=== PATIENT | male | born 1940 | race Caucasian/White ===

== ENCOUNTER 2018-10-23 01:44 | Outpatient (CLI) | payer MEDICARE, SELFPAY ==
[2018-10-23 11:22] LABS: Anion Gap 8.8 mmol/L (3-11); BUN 22 mg/dL (7-18); CO2 27.2 mmol/L (21.0-32.0); CREATININE 1.22 mg/dL (0.70-1.30); Calcium 8.7 mg/dL (8.5-10.1); Chloride 105 mmol/L (98-107); Cholesterol 145 mg/dL (50-200); Glucose 102 mg/dL (70-100); HDL Cholesterol 32 mg/dL (40-60); LDL CHOLESTEROL 83 mg/dL (<100); Potassium 4.4 mmol/L (3.5-5.1); Sodium 141 mmol/L (136-145); Triglyceride 156 mg/dL (30-150)
[2018-10-24 11:09] LABS: PSA, Diagnostic <0.1 ng/ml (0-6.5)
== END 2018-10-23 02:04 ==
PROVIDERS: PCP Family Medicine; Visit Provider Family Medicine
DX: E78.00 Pure hypercholesterolemia, unspecified (principal); I10 Essential (primary) hypertension; C61 Malignant neoplasm of prostate
CPT/HCPCS: 36415; 80048; 80061; 83721; 84153

== ENCOUNTER 2019-10-29 03:16 | Outpatient (CLI) | payer MEDICARE, SELFPAY ==
[2019-10-29 09:58] LABS: Anion Gap 9.3 mmol/L (3-11); BUN 22 mg/dL (7-18); CO2 26.7 mmol/L (21.0-32.0); CREATININE 1.49 mg/dL (0.70-1.30); Calcium 8.5 mg/dL (8.5-10.1); Chloride 106 mmol/L (98-107); Estimated GFR 45.38 (mL/min/1.73m2); Glucose 92 mg/dL (74-106); Potassium 4.5 mmol/L (3.5-5.1); Sodium 142 mmol/L (136-145)
[2019-10-30 09:00] LABS: PSA, Diagnostic <0.1 ng/mL (0.0-6.5)
== END 2019-10-29 03:36 ==
PROVIDERS: PCP Family Medicine; Visit Provider Family Medicine
DX: I10 Essential (primary) hypertension (principal); C61 Malignant neoplasm of prostate
CPT/HCPCS: 36415; 80048; 84153

== ENCOUNTER 2019-11-04 10:00 | Outpatient (REF) | payer MEDICARE, SELFPAY ==
--- NOTE | 2019-11-04 15:52 | SKI_PTH ---
PATIENT: Ky Cantu LOC: [facility] U#:[id number] AGE/SX: 79/M ROOM: RE11/04/[address]: Julien Wells DO : 1940 BED: DIS: 11/04/2019 SPEC #: [id number] RECD: 11/05/19 12:46 STATUS: TUAN REQ #: [id number] JAGDEEP: 11/04/19 15:[address]: Julien Wells DEPT: Surgical Specimen RECD BY: Lu Weiss ENTERED: 11/05/19 12:48 SP TYPE: RADHA ARGUETA DR: Kendrick Garg MD Tissues: 1 - SKIN BIOPSY(SHAVE/PUNCH) Procedures: SKIN LEVEL 4 Comments: [id number]
== END 2019-11-04 10:20 ==
LOC: LBN 10:00
PROVIDERS: PCP Family Medicine; Visit Provider Otolaryngology Otolaryngology/Facial Plastic Surgery
DX: C44.311 Basal cell carcinoma of skin of nose (principal); L90.5 Scar conditions and fibrosis of skin
CPT/HCPCS: 88305

== ENCOUNTER 2020-07-10 01:04 | Outpatient (CLI) | payer MEDICARE, SELFPAY ==
[2020-07-10 13:04] LABS: Anion Gap 8.5 mmol/L (3-11); BUN 22 mg/dL (7-18); CO2 26.5 mmol/L (21.0-32.0); CREATININE 1.28 mg/dL (0.70-1.30); Calcium 8.5 mg/dL (8.5-10.1); Calculated LDL 80 mg/dL (<100); Chloride 103 mmol/L (98-107); Cholesterol 143 mg/dL (<200); Estimated GFR 53.94 (mL/min/1.73m2); Glucose 111 mg/dL (74-106); HDL Cholesterol 40 mg/dL (40-60); Potassium 4.6 mmol/L (3.5-5.1); Sodium 138 mmol/L (136-145); Triglyceride 118 mg/dL (<150)
== END 2020-07-10 01:24 ==
PROVIDERS: PCP Family Medicine; Visit Provider Nurse Practitioner Family
DX: I10 Essential (primary) hypertension (principal)
CPT/HCPCS: 36415; 80048; 80061

== ENCOUNTER 2021-07-20 04:08 | Outpatient (CLI) | payer MEDICARE, SELFPAY ==
[2021-07-20 12:22] LABS: Anion Gap 7.3 mmol/L (3-11); BUN 26 mg/dL (7-18); CO2 27.7 mmol/L (21.0-32.0); CREATININE 1.3 mg/dL (0.70-1.30); Calcium 8.7 mg/dL (8.5-10.1); Calculated LDL 83 mg/dL (<100); Chloride 105 mmol/L (98-107); Cholesterol 149 mg/dL (<200); Estimated GFR 52.85 (mL/min/1.73m2); Glucose 108 mg/dL (74-106); HDL Cholesterol 34 mg/dL (40-60); Potassium 4.1 mmol/L (3.5-5.1); Sodium 140 mmol/L (136-145); Triglyceride 162 mg/dL (<150)
[2021-07-20 16:50] LABS: PSA, Diagnostic <0.1 ng/mL (0.0-6.5)
== END 2021-07-20 04:09 | disposition home or self-care (01) ==
LOC: LBO 04:08
PROVIDERS: PCP Family Medicine; Visit Provider Family Medicine
DX: E78.5 Hyperlipidemia, unspecified (principal); E87.1 Hypo-osmolality and hyponatremia; C61 Malignant neoplasm of prostate
CPT/HCPCS: 36415; 80048; 80061; 84153

== ENCOUNTER 2022-03-31 10:21 | Outpatient (REF) | payer MEDICARE, SELFPAY | END 2022-03-31 10:22 | disposition home or self-care (01) | LOC: LBN 10:21 | PROVIDERS: PCP Family Medicine; Visit Provider Family Medicine | DX: N39.0 Urinary tract infection, site not specified (principal) | CPT/HCPCS: 87086 ==

== ENCOUNTER 2022-04-15 18:00 | Emergency (ER) | payer MEDICARE, SELFPAY ==
[2022-04-15 18:05] VITALS: BP 185/59; PULSE 83; RESP 18; TEMP 36.6; O2SAT 95
[2022-04-15 18:16] LABS: Bilirubin Negative (Negative); Blood Large (Negative); Clarity Sl Cloudy (Clear); Glucose Negative (Negative); Ketones Negative (Negative); Leukocyte Esterase Small (Negative); Nitrite Negative (Negative)
--- NOTE | 2022-04-15 18:21 | W.ED.GENAD ---
Discharge Plan Disposition Patient Disposition: HOME Condition: Stable Discharge Details Clinical Impression: Gross hematuria Primary Care Provider: Luc Boyce ED Provider: Da Henley Home Meds and New Rx's Prescriptions: Continued multivitamin [Daily Multi-Vitamin] 1 EACH tablet 1 ea PO DAILY aspirin,buffd-calcium carb-mag 325 MG tablet 325 mg PO DAILY Label Comments: 07/15/15 holding. [facility] calcium carbonate 600 MG tablet 600 mg PO DAILY vitamin B complex 1 EACH capsule 1 ea PO DAILY vitamin E (dl, acetate) 200 UNIT capsule 1 cap PO DAILY Myrbetriq 50 mg tablet extended release 24 hr 50 mg PO DAILY Qty: 90 3RF atenolol 25 mg tablet 25 mg PO DAILY Qty: 90 3RF tolterodine [Detrol LA] 4 mg capsule,extended release 24hr 4 mg PO DAILY AM Qty: 90 3RF lisinopril-hydrochlorothiazide 20-12.5 mg tablet 1 tab PO DAILY Qty: 90 3RF atorvastatin 40 mg tablet 40 mg PO DAILY Qty: 90 3RF amlodipine 10 mg tablet 10 mg PO DAILY Qty: 90 3RF Discharge Instructions Instructions: Hematuria (ED) Additional Instructions: follow up with your urologist as you will likely need to have a cystoscopy if you develop severe pain, fevers or feel like you are not emptying your bladder return to the emergency department Medical Decision Making 81 yo male with hx of prior prostatectomy, htn, hld who comes in with several weeks of blood in his urine. He denies fevers, chills, abdomen or back pain. He has no n/v. He called his urologist's office today who is on vacation and was told to go to the Ed for evaluation. He states he has no pain with urination and the urine clears at the end of urination and feels like he empties his bladder. He did have a picture and his urine appeared pink tinged in the toilet. Will check cbc, cmp and ua and given he can empty his bladder do not feel siegel indicated. pt stable, ua unremarkable for infection and was able to empty bladder, cbc unremarkable, mild increase in creatinine otherwise cmp unremarkable. Discussed with him and given he can empty bladder will defer siegel, he will f/u with his urologist and return precautions given Differential Diagnosis Differential Diagnosis: cancer, uti, cystitis Lab Data Lab results reviewed: Yes I reviewed the patient's lab results. HPI General Mode of arrival: ambulatory. Date/Time Provider Initiated Documentation: 04/15/22 18:14. Limitations to Documentation: no limitations. Information obtained by: patient. History of Present Illness 81 year old M presents to the emergency department with the chief complaint of blood in urine, described as moderate, Patient started experiencing this week(s) (3) and it has been intermittent. No relieving factors improve symptom(s), No exacerbating factors reported . Patient notes no other symptoms.. Patient did receive the following treatments prior to arrival, none Related Data Home Medications Medication Instructions Recorded Confirmed aspirin,buffered (calcium 325 mg PO DAILY 08/28/12 04/15/22 carbonate-magnesium) 325 mg tablet calcium carbonate 600 mg calcium 600 mg PO DAILY 08/28/12 04/15/22 (1,500 mg) tablet multivitamin (Daily Multi-Vitamin 1 ea PO DAILY 08/28/12 04/15/22 tablet) vitamin B complex 1 ea PO DAILY 08/28/12 04/15/22 vitamin E (dl, acetate) 90 mg (200 1 cap PO DAILY 08/30/13 04/15/22 unit) capsule mirabegron 50 mg tablet,extended 50 mg PO DAILY #90 tab-caps 05/26/21 04/15/22 release 24 hr (Myrbetriq) atenolol 25 mg tablet 25 mg PO DAILY #90 tab-caps 07/13/21 04/15/22 tolterodine 4 mg capsule,extended 4 mg PO DAILY AM #90 caps 08/18/21 04/15/22 release 24 hr (Detrol LA) lisinopril 20 1 tab PO DAILY #90 tabs 09/16/21 04/15/22 mg-hydrochlorothiazide 12.5 mg tablet atorvastatin 40 mg tablet 40 mg PO DAILY #90 tab-caps 01/04/22 04/15/22 amlodipine 10 mg tablet 10 mg PO DAILY #90 tab-caps 03/01/22 04/15/22 Previous Rx's Medication Instructions Recorded mirabegron 50 mg tablet,extended 50 mg PO DAILY #90 tab-caps 05/26/21 release 24 hr (Myrbetriq) atenolol 25 mg tablet 25 mg PO DAILY #90 tab-caps 07/13/21 tolterodine 4 mg capsule,extended 4 mg PO DAILY AM #90 caps 02/23/22 release 24 hr (Detrol LA) lisinopril 20 1 tab PO DAILY #90 tabs 09/16/21 mg-hydrochlorothiazide 12.5 mg tablet atorvastatin 40 mg tablet 40 mg PO DAILY #90 tab-caps 01/04/22 amlodipine 10 mg tablet 10 mg PO DAILY #90 tab-caps 03/01/22 Allergies Allergy/AdvReac Type Severity Reaction Status Date / Time No Known Allergies Allergy Verified 04/15/22 18:08 General Stated Complaint: Urinary TANJA: 3 Review of Systems All systems reviewed & are unremarkable except as noted in HPI and below Constitutional Constitutional: Denies chills, Denies fever(s) and Denies weakness Eyes Eyes: Denies loss of vision Cardiovascular Cardiovascular: Denies chest pain and Denies dyspnea Respiratory Respiratory: Denies cough and Denies dyspnea Gastrointestinal Gastrointestinal: Denies abdominal pain, Denies nausea and Denies vomiting Neurologic Neurologic: Denies loss of vision and Denies weakness PFSH All Active Problems (Updated 04/15/22 @ 19:21 by Da Henley MD) Gross hematuria (Acute) Gross hematuria (Acute) Lesion of nose (Acute) PAD (peripheral artery disease) (Acute) Prediabetes (Acute) Neoplasm of unspecified behavior of bone, soft tissue, and skin (Acute) Dystrophic nail (Acute) Patient has active durable power of bridge manager (DPOA) designee for healthcare (Acute) Herpes zoster (Acute 05/25/00) History of endarterectomy (Acute) Peptic ulcer (Acute) Smoker (Acute) Status post Evangelina fundoplication (Acute) Status post prostatectomy (Acute) 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 cologen injections b. urethral suspension c. 10/27-artificial sphincter Peripheral vascular disease (Chronic 08/28/12) S/P STENTING Hypercholesterolemia (Chronic) Essential hypertension (Chronic 09/02/14) Bursitis of right shoulder (Chronic 08/28/15) Abnormal ECG (Chronic 05/25/05) left lateral ischemia on ETT; neg MPI Medical History (Updated 04/15/22 @ 19:21 by Da Henley MD) colon polyps (~2004) normal colonoscopy 04/14/2005 Surgical History (Updated 03/18/19 @ 13:19 by Dionisio Boyle) ENDARTERECTOMY 2011; LEFT FEMORAL WITH STENT GRAFT LEFT ANGY Evangelina Fundoplication Prostatectomy (~1994) VAGONTOMY (~1983) Family History (Updated 07/17/20 @ 08:52 by Lizbeth Cai) Mother , 85 Colon cancer Father , 72 Essential hypertension Heart disease Brother , 75 Essential hypertension Heart disease Hyperlipidemia Lung cancer Prostate cancer Brother Heart disease Hyperlipidemia Stroke Prostate cancer Hypertension Maternal Grandfather , 80 No problems noted. Paternal Grandfather , 79 Essential hypertension Hyperlipidemia Stroke Maternal Grandmother , 83 No problems noted. Paternal Grandmother , 88 Essential hypertension Heart disease Sister No problems noted. Son Essential hypertension Hyperlipidemia Daughter No problems noted. Other Personal history of malignant neoplasm Social History (Updated 07/16/21 @ 14:09 by Nilsa Ray) Smoking/Tobacco Use Status: Former Tobacco Use tobacco type: cigarettes Quit Date: 06/26/84 Tobacco: How many years used: 20 Second Hand Exposure: Yes Smoking risk assessment performed?: Yes Alcohol Intake: current Alcohol Intake frequency: a few times a month Alcohol type: beer, wine and hard liquor Drug use: Never Substance use type: does not use Counseling given: No Caregiver/Support person: No Household members: none Housing: house Communication Needs: None Do you need help understanding health information?: Rarely Pets and animals: Yes Pets and animals: cat(s) Sexually active: No Do you think of yourself as: straight/heterosexual Current gender identity: male What is your relationship status?: How often do you talk on the phone with friends or family?: three or more times per week How often do you get together with friends or relatives?: once per week How often do you attend anglican or christianity services?: 4 or more times per year Do you belong to any clubs or organized social groups?: yes Panel score (0-1 are the most socially isolated patients): 3 What type of physical activity do you participate in: walking and aerobic Duration: 15-30 minutes/day Frequency: 5-6 times per week Yessica/Lutheran: Christian Special yessica needs: No Seatbelt use: always Drive intox or ride w/intox buggy driver: No Do you feel safe at home: Yes Do you feel safe in your relationship?: Yes Exam Const General: no acute distress Orientation: alert HENMT Head: normal to inspection Ears: external ears normal General nose exam: external nose normal Mouth: moist mucous membranes Eyes General: appearance normal, both eyes and all related structures Neck Neck: normal visual inspection Resp Effort & Inspection: normal respiratory effort and able to speak in complete sentences Cardio Rate: regular rate GI Palpation: soft and nontender Back/Spine/Pelvis Back: no CVA tenderness Skin General skin exam: no rashes or lesions noted Neuro General: patient alert and patient oriented x3 Extrem General: normal to inspection Psych Mental Status: mental status grossly normal Course Vital Signs Vital signs: Vital Signs Temperature 36.6 C 04/15/22 18:05 Pulse 83 04/15/22 18:05 Respiratory Rate 18 04/15/22 18:05 Blood Pressure 185/59 H 04/15/22 18:05 Pulse Oximetry 95 04/15/22 18:05 Temperature 36.6 C 04/15/22 18:05 Temperature Source Temporal Artery Scan 04/15/22 18:05 Pulse 83 04/15/22 18:05 Respiratory Rate 18 04/15/22 18:05 Blood Pressure 185/59 H 04/15/22 18:05 Blood Pressure Position Sitting 04/15/22 18:05 Pulse Oximetry 95 04/15/22 18:05 Oxygen Delivery Method Room Air 04/15/22 18:05 Oxygen Flow Rate 0 04/15/22 18:05 Lab/Test Results Lab/Test Results: Laboratory Tests Range/Units 04/15/22 18:09 Urine Color (Yellow) Yellow Urine Clarity (Clear) Sl Cloudy Urine pH (5-8) 6.0 Ur Specific [place] (1.005-1.025) 1.020 Urine Protein (Negative) mg/dL Negative Urine Ketones (Negative) mg/dL Negative Urine Blood (Negative) Large H Urine Nitrite (Negative) Negative Urine Bilirubin (Negative) Negative Urine Urobilinogen (Up TO 0.2) EU/dL 1.0 H Ur Leukocyte Esterase (Negative) Small H Urine Glucose (Negative) mg/dL Negative
[2022-04-15 18:24] LABS: RBC >50 HPF (0-2)
[2022-04-15 18:25] LABS: Bacteria Negative HPF (Negative); C & S Indicated? No; Casts Negative LPF (Negative); Crystals Negative HPF (Negative); Epithelial Cells Few HPF (Negative); Mucus Negative (Negative); Other Cells Mod Transitional (Negative)
[2022-04-15 18:40] LABS: MCHC 34.1 % (32.0-36.0); MCV 94 fL (80-95); MPV 10.7 fL (8.0-11.0); Platelet Count 209 10^3/uL (130-400); RBC 4.38 10^6/uL (4.36-5.78); RDW-SD 41.8 fL; WBC 8.23 10^3/uL (4.4-10.8)
[2022-04-15 18:56] LABS: ALT 25 U/L (16-63); AST 18 U/L (15-37); Albumin 3.5 g/dL (3.4-5.0); Alkaline Phosphatase 96 U/L (46-116); Anion Gap 8.9 mmol/L (3-11); BUN 31 mg/dL (7-18); Bilirubin, Total 0.5 mg/dL (0.2-1.0); CO2 26.1 mmol/L (21.0-32.0); CREATININE 1.6 mg/dL (0.70-1.30); Calcium 9.3 mg/dL (8.5-10.1); Chloride 103 mmol/L (98-107); Estimated GFR 42.75 (mL/min/1.73m2); Glucose 144 mg/dL (74-106); Potassium 3.9 mmol/L (3.5-5.1); Sodium 138 mmol/L (136-145)
== END 2022-04-15 19:27 | disposition home or self-care (01) ==
PROVIDERS: Physician Assistant; Emergency Provider Emergency Medicine; PCP Family Medicine
DX: R31.0 Gross hematuria (principal); I10 Essential (primary) hypertension; R79.89 Other specified abnormal findings of blood chemistry; Z87.891 Personal history of nicotine dependence
CPT/HCPCS: 80053; 85027; 99281; 81003; 81015

== ENCOUNTER 2023-10-06 19:00 | Emergency (ER) | payer MEDICARE, SELFPAY ==
[2023-10-06 19:15] VITALS: BP 198/61; PULSE 84; RESP 18; TEMP 36.8; O2SAT 96
[2023-10-06 19:34] VITALS: RESP 12
--- NOTE | 2023-10-06 19:45 | DI.RAD_ITS ---
Exam(s) XR FEMUR LT EXAM: XR FEMUR LT CLINICAL HISTORY: Left lateral thigh Pain. TECHNIQUE: 2D digital imaging was performed of the left femur. Four images were obtained. AP and lat eral views were obtained. COMPARISON: No priors for comparison. FINDINGS: BONES: No acute fracture is present. No bony destructive lesion is seen. Visualized portion of knee a nd hip joints are unremarkable. SOFT TISSUE: There is a vascular stent seen in the pelvis. There are multiple surgical clips seen in the pelvis. Atherosclerotic calcification is noted. IMPRESSION: No acute fracture or dislocation. DATA REPOSITORY: RADIATION DOSE DELIVERED:
[2023-10-06 20:18] LABS: Abs Immature Grans 0.04 10^3/uL (0.0-0.06); Absolute Basophil Count 0.07 10^3/uL (0.0-0.2); Absolute Lymphocyte Count 1.83 10^3/uL (1.2-3.4); Absolute Monocyte Count 1.04 10^3/uL (0.1-0.8); Basophils % 0.9; Eosinophils % 2.5; HCT 44.6 % (40.0-50.0); HGB 15.1 g/dL (13.5-17.5); Immature Grans % 0.5; Lymphocytes % 23.2; MCH 32.5 pg (27.0-33.0); MCHC 33.9 % (32.0-36.0); MCV 96 fL (80-95); MPV 11.1 fL (8.0-11.0); Monocytes % 13.2; Neutrophils % 59.7; Platelet Count 206 10^3/uL (130-400); RBC 4.64 10^6/uL (4.36-5.78); RDW 12.4 % (11.8-14.1); RDW-SD 43.6 fL; WBC 7.88 10^3/uL (4.4-10.8)
[2023-10-06 20:29] LABS: Anion Gap 12.3 mmol/L (3-11); BUN 27 mg/dL (7-18); CO2 23.7 mmol/L (21.0-32.0); CREATININE 1.5 mg/dL (0.70-1.30); Chloride 105 mmol/L (98-107); Estimated GFR 45.62 (mL/min/1.73m2); Glucose 126 mg/dL (74-106); Potassium 4.1 mmol/L (3.5-5.1); Sodium 141 mmol/L (136-145)
--- NOTE | 2023-10-06 20:41 | ED.GENADUL_ITS ---
Discharge Plan Disposition Patient Disposition: Home Discharge Details Clinical Impression: Arthralgia of left thigh Primary Care Provider: Luc Boyce ED Provider: Kendrick Walden Home Meds and New Rx's Prescriptions: Continued amlodipine 10 mg tablet 10 mg PO DAILY Qty: 90 3RF atorvastatin 40 mg tablet 40 mg PO DAILY Qty: 90 3RF docusate sodium [Colace] 100 mg capsule 100 mg PO DAILY multivitamin [Daily Multi-Vitamin] 1 EACH tablet 1 ea PO DAILY aspirin,buffd-calcium carb-mag 325 MG tablet 325 mg PO DAILY Patient Comments: 07/15/15 holding. [facility] calcium carbonate 600 MG tablet 600 mg PO DAILY vitamin B complex 1 EACH capsule 1 ea PO DAILY vitamin E (dl, acetate) 200 UNIT capsule 1 cap PO DAILY polyethylene glycol 3350 [Miralax] 17 gram powder in packet 17 g PO DAILY PRN (Reason: constipation) Qty: 30 5RF fluticasone propionate 50 mcg/actuation spray,suspension 1 spray NS daily prn Qty: 9.9 2RF atenolol 25 mg tablet 25 mg PO DAILY Qty: 90 3RF lisinopril-hydrochlorothiazide 20-12.5 mg tablet 1 tab PO DAILY Qty: 90 3RF Discharge Instructions Instructions: Leg Pain (ED) Additional Instructions: You are seen in the emergency department for your leg pain. Your x-ray showed no sign of any fractures. Your blood work was not consistent with a blood clot. As we discussed please return to the emergency department if you develop pain on the inside of your leg if you lose sensation in your leg or if you are foot turns blue. Otherwise please follow-up with your primary care provider next week. Discharge Data Discharge Date/Time-TO BE ENTERED AT DEPARTURE: 10/06/23 21:55 HPI General Date/Time Provider Initiated Documentation: 10/06/23 19:22 . HPI Narrative: MDM This is normothermic and not tachycardic 83-year-old history of tobacco use and peripheral vascular disease with left thigh pain concerning for possibility of early DVT for which patient will undergo ultrasound at bedside and D-dimer testing. No pain or proportion to suggest necrotizing soft tissue infection. No vesicles to suggest zoster however patient certainly could have early zoster. Left foot warm well-perfused so I am not concerned for critical limb ischemia so I did not feel that the patient required a CTA to assess for aortic insufficiency. No significant trauma to thigh to suggest increased risk for fracture however will obtain x-ray. Patient is able to straight leg raise so I am not concerned for quadriceps tendon injury. No calf pain nor history of trauma to calf so I did not apply a Gómez test as I was not concerned for Achilles tendon rupture. I considered CVA however given the limited distribution of the patient's left lateral thigh numbness I did not think that the patient's symptoms represented a CVA nor TIA so I did not feel he required a CT scan or an MRI nor would he be a tPA candidate. 9:35 PM X-ray read as normal. Patient does have a left iliac vascular stents however I do not feel that his symptoms represent vascular insufficiency given its very limited distribution. Patient's d dimer was less than 1000 and based on years criteria I am not concerned for DVT nor PE so I did not treat empirically with anticoagulants given my reassuring limited bedside ultrasound that was negative for DVT and the patient's history and physical. Patient and I discussed return to the ED for any worsening pain color changes in his leg or foot or any medial thigh tenderness. His limited bedside ultrasound was negative for DVT. Patient understood his return indications and was discharged with empiric trial of expectant outpatient management. I have asked health unit aid Cori to have the patient seen next week by his primary care provider for a left lower extremity duplex. Chronic conditions affecting the care of the patient: Hypertension hyperlipidemia History obtained from an outside historian: N/A External record review: [facility] EMR Medications: N/A Social determinants of health affecting disposition: N/A Management discussed with: N/A Treatment/interventions considered: N/A Response to therapies provided: N/A HPI This is an 83-year-old male with peripheral vascular disease arrived to the emergency department via private vehicle in the setting of left lateral thigh pain. Patient reports that he generally walks 1 to 2 miles per day. He reports that this evening he started to have pain at approximately 6:30 PM. Pain subsequently improved. His pain is on the lateral side of his left thigh. He has not noticed any rash to his left thigh. He previously had a DVT in his [facility] lower extremity and is presented with medial thigh pain with redness. He was previously on apixaban but is no longer on apixaban. Exam General: Well-appearing in no acute distress speaking in complete sentences. Head: Normocephalic, atraumatic. Eye: Extraocular eye movements intact. No conjunctival injection. No scleral icterus. Ear, nose, mouth, throat: Grossly normal inspection. Normal voice, handling secretions normally. Neck: Trachea midline. Cardiovascular: Well-perfused distal extremities. Respiratory: Nonlabored respiration. Gastrointestinal: Nondistended abdomen. Musculoskeletal: Left lower extremity warm well-perfused. On inspection of left lateral thigh no obvious abnormalities. Patient is able to straight leg raise. He has 2+ left DP and PT pulses. He has 5 out of 5 strength dorsal and plantarflexion. Skin: Normal for age and race, grossly normal temperature and turgor. No acute rash. Neurologic: Alert and appropriate, no apparent acute deficits. Psychiatric: Mood and manner are appropriate. Grooming and personal hygiene are appropriate. Related Data Home Medications Medication Instructions Recorded Confirmed aspirin,buffered (calcium 325 mg PO DAILY 08/28/12 10/06/23 carbonate-magnesium) 325 mg tablet calcium carbonate 600 mg PO DAILY 08/28/12 10/06/23 multivitamin (Daily Multi-Vitamin 1 ea PO DAILY 08/28/12 10/06/23 tablet) vitamin B complex 1 ea PO DAILY 08/28/12 10/06/23 vitamin E (dl, acetate) 90 mg (200 1 cap PO DAILY 08/30/13 10/06/23 unit) capsule polyethylene glycol 3350 17 gram 17 g PO DAILY PRN constipation #30 09/15/22 10/06/23 oral powder packet (Miralax) ea docusate sodium 100 mg capsule 100 mg PO DAILY 09/27/22 10/06/23 (Colace) amlodipine 10 mg tablet 10 mg PO DAILY #90 tab-caps 11/02/22 10/06/23 atorvastatin 40 mg tablet 40 mg PO DAILY #90 tab-caps 11/02/22 10/06/23 fluticasone propionate 50 1 spray NS daily prn #9.9 mL 04/01/23 10/06/23 mcg/actuation nasal spray,suspension atenolol 25 mg tablet 25 mg PO DAILY #90 tab-caps 06/27/23 10/06/23 lisinopril 20 1 tab PO DAILY #90 tabs 07/17/23 10/06/23 mg-hydrochlorothiazide 12.5 mg tablet Previous Rx's Medication Instructions Recorded polyethylene glycol 3350 17 gram 17 g PO DAILY PRN constipation #30 09/15/22 oral powder packet (Miralax) ea amlodipine 10 mg tablet 10 mg PO DAILY #90 tab-caps 11/02/22 atorvastatin 40 mg tablet 40 mg PO DAILY #90 tab-caps 11/02/22 fluticasone propionate 50 1 spray NS daily prn #9.9 mL 04/01/23 mcg/actuation nasal spray,suspension atenolol 25 mg tablet 25 mg PO DAILY #90 tab-caps 06/27/23 lisinopril 20 1 tab PO DAILY #90 tabs 07/17/23 mg-hydrochlorothiazide 12.5 mg tablet Allergies Allergy/AdvReac Type Severity Reaction Status Date / Time No Known Allergies Allergy Verified 10/06/23 19:20 General Stated Complaint: [facility]Medical TANJA: 4 Course Vital Signs Vital signs: Vital Signs Temperature 36.8 C 10/06/23 19:15 Pulse 84 10/06/23 19:15 Respiratory Rate 18 10/06/23 19:15 Blood Pressure 198/61 H 10/06/23 19:15 Pulse Oximetry 96 10/06/23 19:15 Temperature 36.8 C 10/06/23 19:15 Pulse 84 10/06/23 19:15 Respiratory Rate 12 10/06/23 19:34 Respiratory Effort Normal 10/06/23 19:34 Respiratory Depth Normal 10/06/23 19:34 Respiratory Pattern Normal 10/06/23 19:34 Blood Pressure 198/61 H 10/06/23 19:15 Pulse Oximetry 96 10/06/23 19:15 Oxygen Delivery Method Room Air 10/06/23 19:15 Oxygen Flow Rate 0 10/06/23 19:15 Pain Level 5 10/06/23 19:15 Lab/Test Results Lab/Test Results: Laboratory Tests Range/Units 10/06/23 20:10 WBC (4.4-10.8) 10^3/uL 7.88 RBC (4.36-5.78) 10^6/uL 4.64 Hgb (13.5-17.5) g/dL 15.1 Hct (40.0-50.0) % 44.6 MCV (80-95) fL 96 H MCH (27.0-33.0) pg 32.5 MCHC (32.0-36.0) % 33.9 RDW (11.8-14.1) % 12.4 Plt Count (130-400) 10^3/uL 206 MPV (8.0-11.0) fL 11.1 H Immature Gran % 0.5 Neutrophils % 59.7 Lymphocytes % 23.2 Monocytes % 13.2 Eosinophils % 2.5 Basophils % 0.9 Nucleated RBC % (0.0-0.3) % 0.0 Absolute Neutrophils (1.2-6.7) 10^3/uL 4.70 Absolute Lymphocytes (1.2-3.4) 10^3/uL 1.83 Absolute Monocytes (0.1-0.8) 10^3/uL 1.04 H Absolute Eosinophils (0.0-0.7) 10^3/uL 0.20 Absolute Basophils (0.0-0.2) 10^3/uL 0.07 Sodium (136-145) mmol/L 141 Potassium (3.5-5.1) mmol/L 4.1 Chloride (98-107) mmol/L 105 Carbon Dioxide (21.0-32.0) mmol/L 23.7 Anion Gap (3-11) mmol/L 12.3 H BUN (7-18) mg/dL 27 H Creatinine (0.70-1.30) mg/dL 1.5 H Est GFR (CKD-EPI 2020) (mL/min/1.73m2) 45.62 Glucose (74-106) mg/dL 126 H Calcium (8.5-10.1) mg/dL 9.0 Medical Decision Making Quality:SDOH Health Related Social Needs: No Data to Display PFSH All Active Problems (Updated 10/06/23 @ 21:37 by Kendrick Walden MD) Arthralgia of left thigh (Acute) Weight loss (Acute) Vasomotor rhinitis (Acute) Sinus headache (Acute) 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 cologen injections b. urethral suspension c. 10/27-artificial sphincter Peripheral vascular disease (Chronic 08/28/12) S/P STENTING Hypercholesterolemia (Chronic) Essential hypertension (Chronic 09/02/14) Bursitis of right shoulder (Chronic 08/28/15) Abnormal ECG (Chronic 05/25/05) left lateral ischemia on ETT; neg MPI Medical History colon polyps (~2004) normal colonoscopy 04/14/2005 Surgical History ENDARTERECTOMY 2011; LEFT FEMORAL WITH STENT GRAFT LEFT ANGY Evangelina Fundoplication Prostatectomy (~1994) VAGONTOMY (~1983) Family History Mother , 85 Colon cancer Father , 72 Essential hypertension Heart disease Brother , 75 Essential hypertension Heart disease Hyperlipidemia Lung cancer Prostate cancer Brother Heart disease Hyperlipidemia Stroke Prostate cancer Hypertension Maternal Grandfather , 80 No problems noted. Paternal Grandfather , 79 Essential hypertension Hyperlipidemia Stroke Maternal Grandmother , 83 No problems noted. Paternal Grandmother , 88 Essential hypertension Heart disease Sister No problems noted. Son Essential hypertension Hyperlipidemia Daughter No problems noted. Other Personal history of malignant neoplasm Social History (Updated 07/20/22 @ 17:26 by Jacinta Harding) Smoking/Tobacco Use Status: Former Tobacco Use tobacco type: cigarettes Quit Date: 06/26/84 Tobacco: How many years used: 20 Second Hand Exposure: Yes Smoking risk assessment performed?: Yes Alcohol Intake: current Alcohol Intake frequency: a few times a month Alcohol type: beer, wine and hard liquor Drug use: Never Substance use type: does not use Counseling given: No Caregiver/Support person: No Household members: none Housing: house Communication Needs: None Do you need help understanding health information?: Rarely Pets and animals: No Sexually active: No Do you think of yourself as: straight/heterosexual Current gender identity: male What is your relationship status?: How often do you talk on the phone with friends or family?: three or more times per week How often do you get together with friends or relatives?: once per week How often do you attend bahai or christianity services?: 4 or more times per year Do you belong to any clubs or organized social groups?: yes Panel score (0-1 are the most socially isolated patients): 3 What type of physical activity do you participate in: walking and aerobic Duration: 15-30 minutes/day Frequency: daily Yessica/Yazidi: Uatsdin Special yessica needs: No Seatbelt use: always Drive intox or ride w/intox 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 Do you feel safe at home: Yes Do you feel safe in your relationship?: Yes PAWSS Have you Been Recently Intoxicated or Drunk Within the Last 30 days?: No Have you Ever Experienced Previous Episodes of Alcohol Withdrawal?: No Have you ever Experienced Withdrawal Seizures?: No Have you ever Experienced Delirium Tremens(DT)s?: No Have you ever undergone Alcohol Rehabilitation Treatment (i.e, inpt ot outpatient treatment programs)?: No Have you ever Experienced Blackouts?: No Have you ever Combined Alcohol with other Downers within the last 90 days?: No Have you ever Combined Alcohol with any other Substance of Abuse during the last 90 days?: No Positive Blood Alcohol level on Presentation? [PCS.BAL]: No Evidence of Increased Autonomic Activity (i.e. HR>120, tremor, sweating, agitation, nausea)?: No Result: 0 POCUS Exam (ED) Limited Vascular Exam DATE OF EXAM: 10/06/23 TIME OF EXAM: 21:07 PROVIDER THAT PERFORMED THE STUDY: Kendrick Walden IS THIS A REPEAT EXAM DURING THIS ENCOUNTER: No Vascular Exam: Left lower extremity REASON FOR EXAM: Concern for DVT left lower extremity Exam Complete DIFFERENTIAL DIAGNOSES: Negative left lower extremity [id number] DVT study
--- NOTE | 2023-10-06 20:48 | DI.VRAD_ITS ---
PROCEDURE INFORMATION: Exam: XR Left Femur Exam date and time: 10/06/2023 8:31 PM Age: 83 years old Clinical indication: Patient HX: Left lateral thigh pain x 6 pm today, left leg numbness x 1 wk; Additional info: No prev injury, no h/o surg TECHNIQUE: Imaging protocol: Radiologic exam of the left femur. Views: 2 views. COMPARISON: No relevant prior studies available. FINDINGS: Bones/joints: Osseous alignment is normal. No acute fracture. No significant arthritic change. Significant atherosclerotic calcification throughout the superficial femoral/popliteal artery. Soft tissues: Unremarkable. Vasculature: Left iliac vascular stent and multiple surgical clips noted in the pelvis. IMPRESSION: No acute abnormality. Dictated and Authenticated by: Ruiz Shahid MD. Ordering:MONIKA Marks MD
[2023-10-06 21:25] LABS: D-Dimer 956 ng/mlFEU (<500)
[2023-10-06 21:55] VITALS: BP 198/61; PULSE 84; RESP 12; TEMP 36.8; O2SAT 96
--- NOTE | 2023-10-07 01:05 | NUR.NOTE ---
Pt placed on care management referral list to see PCP for lower extremity duplex per Dr Walden to be seen within 1 week
== END 2023-10-06 21:55 | disposition home or self-care (01) ==
PROVIDERS: Emergency Provider Emergency Medicine; PCP Family Medicine
DX: M79.652 Pain in left thigh (principal)
CPT/HCPCS: 73552; 80048; 93971; 99285; 84484; 85025; 85379; 99284

== ENCOUNTER → 2023-10-16 02:07 | Outpatient (CLI) | payer MEDICARE, SELFPAY ==
--- NOTE | 2023-10-16 06:45 | DI.US_ITS ---
Exam(s) US LOWER EXTREMITY VENOUS LT EXAM: US LOWER EXTREMITY VENOUS LT CLINICAL HISTORY: thigh/leg pain,m79.605; hx of DVT TECHNIQUE: Left lower extremity venous ultrasound performed using grayscale, color-flow, and spectra l Doppler analysis. COMPARISON: No priors for comparison. FINDINGS: The left common femoral, femoral and popliteal veins demonstrate normal compressibility, augmentation , and color Doppler. The posterior tibial and peroneal veins are patent. The saphenofemoral junction is unremarkable. There is no evidence of a Day cyst. The soft tissues are unremarkable. IMPRESSION: No evidence of a left lower extremity DVT. DATA REPOSITORY:
== END ==
PROVIDERS: PCP Family Medicine; Visit Provider Family Medicine
DX: M79.605 Pain in left leg (principal); M79.652 Pain in left thigh; Z86.72 Personal history of thrombophlebitis
CPT/HCPCS: 93971

== ENCOUNTER 2024-03-02 10:58 | Emergency (ER) | payer MEDICARE, SELFPAY ==
[2024-03-02] VITALS (30 sets, daily range): BP systolic 162–194; BP diastolic 44–94; PULSE 61–78; RESP 10–19; TEMP 36.6; O2SAT 92–98
--- NOTE | 2024-03-02 10:45 | RT.EKG_ITS ---
APPROVED REPORT Exam: Resting ECG Reason for Exam: syncope Patient Location: E HR:64 bpm ECG Measurements Heart Rate 64 AXIS WV 201 P 83 QRSd 86 QRS 66 QT 406 T [id number] QTc 421 Conclusion Sinus rhythm...normal P axis, V-rate 60- 99 Anterior infarct, old...Q >40mS, abnormal ST-T, V2-V5 Borderline repol abnormality, diffuse leads...ST dep, T flat/neg, ant/lat/inf sinus rhtyhm normal axis, normal intervals, consider st seg depressions inferior lateral
--- NOTE | 2024-03-02 11:11 | ED.GENADUL_ITS ---
Discharge Plan Disposition Patient Disposition: Home Condition: Improving Discharge Details Clinical Impression: Acute UTI Primary Care Provider: Luc Boyce ED Provider: Robert Heath Home Meds and New Rx's Prescriptions: New cefpodoxime 200 mg tablet 200 mg PO BID 7 Days Qty: 14 0RF Rx Instructions: must administer with a meal/food No Action atorvastatin 40 mg tablet 40 mg PO DAILY Qty: 90 3RF docusate sodium [Colace] 100 mg capsule 100 mg PO DAILY multivitamin [Daily Multi-Vitamin] 1 EACH tablet 1 ea PO DAILY aspirin,buffd-calcium carb-mag 325 MG tablet 325 mg PO DAILY Patient Comments: 07/15/15 holding. [facility] calcium carbonate 600 MG tablet 600 mg PO DAILY vitamin B complex 1 EACH capsule 1 ea PO DAILY vitamin E (dl, acetate) 200 UNIT capsule 1 cap PO DAILY polyethylene glycol 3350 [Miralax] 17 gram powder in packet 17 g PO DAILY PRN (Reason: constipation) Qty: 30 5RF fluticasone propionate 50 mcg/actuation spray,suspension 1 spray NS daily prn Qty: 9.9 2RF atenolol 25 mg tablet 25 mg PO DAILY Qty: 90 3RF lisinopril-hydrochlorothiazide 20-12.5 mg tablet 1 tab PO DAILY Qty: 90 3RF amlodipine 10 mg tablet 10 mg PO DAILY Qty: 90 3RF Discharge Instructions Instructions: Urinary Tract Infection, Adult ED Additional Instructions: Please follow-up closely with your primary care physician as well as your neurologist. Return to the emergency department for any worsening symptoms HPI General Date/Time Provider Initiated Documentation: 03/02/24 11:06 . HPI Narrative: 83-year-old male presents with lightheadedness over the last 2 days described as presyncopal sensation denies chest pain or shortness of breath, does have history of right lower extremity DVT in the past not on anticoagulation, patient has an ostomy with normal output no vomiting. No recent travel no recent immobilization Related Data Home Medications ?Medication ?Instructions ?Recorded ?Confirmed aspirin,buffered (calcium 325 mg PO DAILY 08/28/12 03/02/24 carbonate-magnesium) 325 mg tablet calcium carbonate 600 mg PO DAILY 08/28/12 03/02/24 multivitamin (Daily Multi-Vitamin 1 ea PO DAILY 08/28/12 03/02/24 tablet) vitamin B complex 1 ea PO DAILY 08/28/12 03/02/24 vitamin E (dl, acetate) 90 mg (200 1 cap PO DAILY 08/30/13 03/02/24 unit) capsule polyethylene glycol 3350 17 gram 17 g PO DAILY PRN constipation #30 09/15/22 03/02/24 oral powder packet (Miralax) ea docusate sodium 100 mg capsule 100 mg PO DAILY 09/27/22 03/02/24 (Colace) fluticasone propionate 50 1 spray NS daily prn #9.9 mL 04/01/23 03/02/24 mcg/actuation nasal spray,suspension atenolol 25 mg tablet 25 mg PO DAILY #90 tab-caps 06/27/23 03/02/24 lisinopril 20 1 tab PO DAILY #90 tabs 07/17/23 03/02/24 mg-hydrochlorothiazide 12.5 mg tablet amlodipine 10 mg tablet 10 mg PO DAILY #90 tab-caps 10/16/23 03/02/24 atorvastatin 40 mg tablet 40 mg PO DAILY #90 tab-caps 11/01/23 03/02/24 cefpodoxime 200 mg tablet 200 mg PO BID 7 days #14 tabs 03/02/24 Previous Rx's ?Medication ?Instructions ?Recorded polyethylene glycol 3350 17 gram 17 g PO DAILY PRN constipation #30 09/15/22 oral powder packet (Miralax) ea fluticasone propionate 50 1 spray NS daily prn #9.9 mL 04/01/23 mcg/actuation nasal spray,suspension atenolol 25 mg tablet 25 mg PO DAILY #90 tab-caps 06/27/23 lisinopril 20 1 tab PO DAILY #90 tabs 07/17/23 mg-hydrochlorothiazide 12.5 mg tablet amlodipine 10 mg tablet 10 mg PO DAILY #90 tab-caps 10/16/23 atorvastatin 40 mg tablet 40 mg PO DAILY #90 tab-caps 11/01/23 cefpodoxime 200 mg tablet 200 mg PO BID 7 days #14 tabs 03/02/24 Allergies Allergy/AdvReac Type Severity Reaction Status Date / Time No Known Allergies Allergy Verified 11/06/23 09:11 General TANJA: 4 Exam Narrative Exam Narrative: Alert oriented although does appear uncomfortable Clammy/diaphoretic Moist mucous membranes tongue secretions normal voice Normal heart sounds no murmurs rubs or gallops Lungs clear bilaterally no wheezes rales or rhonchi Abdomen soft nontender nondistended, normal urostomy bag Moving all extremities without deficits 5 out of 5 strength upper and lower extremities, sensation intact, cranial nerves intact, no ataxia, normal speech Medical Decision Making 83-year-old male history of right lower extremity DVT not on anticoagulation presents with 2 days of presyncopal sensation, no chest pain no shortness of breath, noted to be clammy/diaphoretic on arrival, placed on monitor IV access obtained, EKG sinus rhythm normal axis with diffuse ST segment depressions no definitive ST segment elevation, denies recent travel immobilization or trauma, no nausea or vomiting, no diarrhea, urostomy, abdomen soft nontender nondistended, neurologically intact with normal cranial nerves normal strength and sensation no ataxia normal speech. Consider dehydration versus likely derangement versus ACS versus PE lower suspicion for aortic pathology lower suspicion for intra-abdominal infection must also consider viral illness lower suspicion for UTI low suspicion for stroke given nonfocal symptomatology without ataxia no evidence of trauma. Will obtain screening labs imaging close reassessment 14: 11 resting comfortably no acute distress feeling better after fluids and medication. Evidence of UTI. Will start cefpodoxime, patient to follow-up closely with his urology team. Home care instructions return precautions given Quality:SDOH Health Related Social Needs: No Data to Display PFSH All Active Problems (Updated 03/02/24 @ 14:13 by Robert Heath MD) Acute UTI (Acute) Pain in left leg (Acute) Weight loss (Acute) Vasomotor rhinitis (Acute) Sinus headache (Acute) H/O total cystectomy (Acute 08/26/22) [facility] [place]. 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 cologen injections b. urethral suspension c. 10/27-artificial sphincter Peripheral vascular disease (Chronic 08/28/12) S/P STENTING Hypercholesterolemia (Chronic) Essential hypertension (Chronic 09/02/14) Bursitis of right shoulder (Chronic 08/28/15) Abnormal ECG (Chronic 05/25/05) left lateral ischemia on ETT; neg MPI Medical History History of squamous cell carcinoma of skin Abnormal skin growth colon polyps (~2004) normal colonoscopy 04/14/2005 Surgical History VAGONTOMY (~1983) Prostatectomy (~1994) Evangelina Fundoplication ENDARTERECTOMY 2011; LEFT FEMORAL WITH STENT GRAFT LEFT ANGY Family History Mother , 85 Colon cancer Father , 72 Essential hypertension Heart disease Brother , 75 Essential hypertension Heart disease Hyperlipidemia Lung cancer Prostate cancer Brother Heart disease Hyperlipidemia Stroke Prostate cancer Hypertension Maternal Grandfather , 80 No problems noted. Paternal Grandfather , 79 Essential hypertension Hyperlipidemia Stroke Maternal Grandmother , 83 No problems noted. Paternal Grandmother , 88 Essential hypertension Heart disease Sister No problems noted. Son Essential hypertension Hyperlipidemia Daughter No problems noted. Other Personal history of malignant neoplasm Social History Smoking/Tobacco Use Status: Former Tobacco Use tobacco type: cigarettes Quit Date: 06/26/84 Tobacco: How many years used: 20 Second Hand Exposure: Yes Smoking risk assessment performed?: Yes Alcohol Intake: current Alcohol Intake frequency: a few times a month Alcohol type: beer, wine and hard liquor Drug use: Never Substance use type: does not use Counseling given: No Caregiver/Support person: No Household members: none Housing: house Communication Needs: None Do you need help understanding health information?: Rarely Pets and animals: No Sexually active: No Do you think of yourself as: straight/heterosexual Current gender identity: male What is your relationship status?: How often do you talk on the phone with friends or family?: three or more times per week How often do you get together with friends or relatives?: once per week How often do you attend christianity or anabaptism services?: 4 or more times per year Do you belong to any clubs or organized social groups?: yes Panel score (0-1 are the most socially isolated patients): 3 What type of physical activity do you participate in: walking and aerobic Duration: 15-30 minutes/day Frequency: daily Yessica/Jew: Sabianism Special yessica needs: No Seatbelt use: always Drive intox or ride w/intox 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
[2024-03-02 11:32] LABS: Abs Immature Grans 0.05 10^3/uL (0.0-0.06); Absolute Basophil Count 0.05 10^3/uL (0.0-0.2); Absolute Lymphocyte Count 1.14 10^3/uL (1.2-3.4); Absolute Monocyte Count 0.86 10^3/uL (0.1-0.8); Absolute Neutrophil Count 7.73 10^3/uL (1.2-6.7); Basophils % 0.5 %; HCT 42.9 % (40.0-50.0); HGB 14.5 g/dL (13.5-17.5); Immature Grans % 0.5 %; Lymphocytes % 11.5 %; MCH 32.5 pg (27.0-33.0); MCHC 33.8 % (32.0-36.0); MCV 96 fL (80-95); MPV 10.6 fL (8.0-11.0); Monocytes % 8.7 %; Neutrophils % 77.8 %; Platelet Count 223 10^3/uL (130-400); RBC 4.46 10^6/uL (4.36-5.78); RDW 12.2 % (11.8-14.1); RDW-SD 42.8 fL; WBC 9.93 10^3/uL (4.4-10.8)
[2024-03-02 11:44] LABS: PTT Activated 22.6 sec (23.6-32.8); Prothrombin Time 10.4 sec (9.1-11.1)
[2024-03-02 11:55] LABS: ALT 23 U/L (16-63); AST 20 U/L (15-37); Albumin 3.4 g/dL (3.4-5.0); Alkaline Phosphatase 88 U/L (46-116); BUN 22 mg/dL (7-18); Bilirubin, Total 0.38 mg/dL (0.2-1.0); CREATININE 1.2 mg/dL (0.70-1.30); Calcium 9.6 mg/dL (8.5-10.1); Chloride 102 mmol/L (98-107); Estimated GFR 59.63 (mL/min/1.73m2); Glucose 156 mg/dL (74-106); Lipase 67 U/L (16-77); Magnesium 1.8 mg/dL (1.8-2.4); NT-proBNP 198 pg/mL (<300); Potassium 4.1 mmol/L (3.5-5.1); Sodium 134 mmol/L (136-145); TSH (W/Ref FT4) 2.73 uIU/mL (0.36-3.74); Total Protein 7.1 g/dL (6.4-8.2); Troponin I 7 ng/L (4-76)
[2024-03-02 11:58] LABS: Bilirubin Negative (Negative); Blood Negative (Negative); Clarity Turbid (Clear); Glucose Negative (Negative); Ketones Negative (Negative); Leukocyte Esterase Small (Negative); Nitrite Positive (Negative); Urobilinogen 0.2 mg/dL (Up to 0.2); pH 6.5 (5-8)
[2024-03-02 12:05] LABS: Bacteria Moderate HPF (Negative); C & S Indicated? Yes; Casts Negative LPF (Negative); Crystals Negative HPF (Negative); Epithelial Cells Negative HPF (Negative); Mucus Heavy (Negative); RBC 0-2 HPF (0-2); WBC >50 HPF (0-5)
[2024-03-02 12:19] LABS: COVID-19 PCR Negative (Negative); Influenza A PCR Negative (Negative); Influenza B PCR Negative (Negative); RSV PCR Negative (Negative); Source Nasopharynx
[2024-03-02] MEDS: Normal Saline 500 ML 1000 ML IV (12:34)
[2024-03-02] MEDS: Cefpodoxime 200 MG TAB PO (12:34)
[2024-03-02] MEDS: Omnipaque 350 MG/ML 100 ML BTL IJ (13:00)
[2024-03-02] MEDS: Normal Saline - Diluent 50 ML VIAL IJ (13:02)
--- NOTE | 2024-03-02 13:09 | DI.CT_ITS ---
Exam(s) CT CHEST PE CTA EXAM: CT CHEST PE CTA CLINICAL HISTORY: presyncope, hx of DVT. TECHNIQUE: Imaging Protocol: Axial CT angiography was performed with multi-slice acquisition and mu lti-planar and/or 3D reconstructions. CONTRAST MATERIAL: Intravenous: Omnipaque 350 contrast volume:100 mL COMPARISON: No exams were available for comparison FINDINGS: Tracheobronchial tree: Patent where visualized. No bronchiectasis. Pulmonary parenchyma: There is a linear opacity in the right middle lobe and in the left lingula. Th is may represent atelectasis, scarring or pneumonia. Dependent atelectatic changes are seen in the l kati bases. Mild emphysematous changes are present in the lungs. Pulmonary Arteries: No evidence of filling defect to suggest pulmonary emboli. Mediastinum and Marcie: No dominant adenopathy or fluid collection. The esophagus is unremarkable. Visualized thyroid gland: Unremarkable. Pleura: No effusion or pneumothorax. Heart: The heart is not dilated. Three vessel coronary artery calcification is present. No pericardi al effusion. Aorta: Thoracic aorta non-dilated. Atherosclerotic calcification is present. Due to the timing of th e bolus, the thoracic aorta is inadequately opacified for evaluation for aortic dissection. Upper abdomen: Cholelithiasis. Soft tissues: Mild gynecomastia. Bones: Within normal limits for the patient's age. IMPRESSION: 1. No evidence of a pulmonary embolism or thoracic aortic aneurysm. 2. Bilateral basilar infiltrates which may represent atelectasis, scarring or pneumonia. Please matthew elate clinically. RADIATION DOSE DELIVERED: 148.23mGy.cm Total DLP DATA REPOSITORY: All CT scans at this facility are submitted to the National Radiology Data Registry (NRDR) Dose Index Registry (DIR) with the [employer] ([employer]). RADIATION OPTIMIZATION: All CT scans at this facility use at least one of these dose optimization te chniques: automated exposure control; mA and/or kV adjustment per patient size (includes targeted exa ms where dose is matched to clinical indication); or iterative reconstruction.
--- NOTE | 2024-03-02 13:09 | DI.CT_ITS ---
Exam(s) CT HEAD WO EXAM: CT HEAD WO CLINICAL HISTORY: presyncopal. TECHNIQUE: Imaging Protocol: Axial computed tomography images with coronal and sagittal reformatted images were created and reviewed COMPARISON: No exams were available for comparison FINDINGS: Ventricles and Extra axial spaces: Normal in size and morphology for the patient's age. Hemorrhage: None. Cerebral parenchyma: There are areas of decreased attenuation in the white matter most consistent wit h chronic microvascular ischemic disease. No acute mass effect. No evidence of an acute territorial infarct. 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 Midline shift: None. Brainstem/Cerebellum: Normal. Calvarium: Normal. Visualized Paranasal sinuses/Mastoids: Clear. Soft Tissues: Unremarkable. IMPRESSION: No acute intracranial process. RADIATION DOSE DELIVERED: 898.07mGy.cm Total DLP DATA REPOSITORY: All CT scans at this facility are submitted to the National Radiology Data Registry (NRDR) Dose Index Registry (DIR) with the [employer] ([employer]). RADIATION OPTIMIZATION: All CT scans at this facility use at least one of these dose optimization te chniques: automated exposure control; mA and/or kV adjustment per patient size (includes targeted exa ms where dose is matched to clinical indication); or iterative reconstruction.
[2024-03-02 13:18] LABS: Troponin I 9 ng/L (4-76)
== END 2024-03-02 14:40 | disposition home or self-care (01) ==
PROVIDERS: Emergency Provider Emergency Medicine; PCP Family Medicine
DX: R55 Syncope and collapse (principal); N39.0 Urinary tract infection, site not specified; I10 Essential (primary) hypertension; E78.00 Pure hypercholesterolemia, unspecified; Z79.82 Long term (current) use of aspirin; Z86.718 Personal history of other venous thrombosis and embolism; Z87.891 Personal history of nicotine dependence
CPT/HCPCS: 36415; 71275; 80053; 83690; 87637; 93005; 99285; 70450; 81003; 81015; 83735; 83880; 84443; 84484; 85025; 85610; 85730; 87086; 93010; 99284; J3490

== ENCOUNTER 2024-03-08 19:20 | Outpatient (REF) | payer MEDICARE, SELFPAY | END 2024-03-08 19:21 | disposition home or self-care (01) | LOC: LBN 19:20 | PROVIDERS: PCP Family Medicine; Visit Provider Family Medicine | DX: N39.0 Urinary tract infection, site not specified (principal); R30.0 Dysuria; I95.1 Orthostatic hypotension; Z93.6 Other artificial openings of urinary tract status; I73.9 Peripheral vascular disease, unspecified | CPT/HCPCS: 87086 ==

== ENCOUNTER 2024-07-10 10:18 | Outpatient (RCR) | payer MEDICARE, SELFPAY | END 2024-07-26 23:59 | disposition home or self-care (01) | LOC: CR 10:18 | PROVIDERS: PCP Family Medicine; Visit Provider Internal Medicine Cardiovascular Disease ==

== ENCOUNTER 2024-08-02 11:20 | Outpatient (RCR) | payer MEDICARE, SELFPAY ==
--- NOTE | 2024-08-02 10:30 | RT.EKG_ITS ---
APPROVED REPORT Exam: Resting ECG Reason for Exam: Baseline Patient Location: O HR:60 bpm ECG Measurements Heart Rate 60 AXIS GA 193 P 81 QRSd 86 QRS 61 QT 399 T -30 QTc 399 Conclusion Sinus rhythm...normal P axis, V-rate 50- 99 Ventricular premature complex...V complex w/ short R-R interval Nonspecific repol abnormality, diffuse leads...ST dep, T flat/neg, ant/lat/inf
== END 2024-08-23 23:59 | disposition home or self-care (01) ==
LOC: CR 11:20
PROVIDERS: PCP Family Medicine; Visit Provider Internal Medicine Cardiovascular Disease
DX: I21.4 Non-ST elevation (NSTEMI) myocardial infarction (principal); I25.10 Atherosclerotic heart disease of native coronary artery without angina pectoris; Z51.89 Encounter for other specified aftercare
CPT/HCPCS: S9472

== ENCOUNTER 2024-08-16 13:50 | Outpatient (CLI) | payer MEDICARE, SELFPAY ==
--- NOTE | 2024-08-16 13:45 | RT.EKG_ITS ---
APPROVED REPORT Exam: Resting ECG Reason for Exam: hx NSTEMI Patient Location: O HR:75 bpm ECG Measurements Heart Rate 75 AXIS PA 181 P 55 QRSd 74 QRS 21 QT 374 T [id number] QTc 418 Conclusion Sinus rhythm...normal P axis, V-rate 50- 99 Ventricular premature complex...V complex w/ short R-R interval Poor R wave progression Baseline artifact
== END 2024-08-16 13:51 | disposition home or self-care (01) ==
LOC: DI.CARD 13:59
PROVIDERS: PCP Family Medicine; Referring Provider Family Medicine; Visit Provider Internal Medicine Cardiovascular Disease
DX: I21.4 Non-ST elevation (NSTEMI) myocardial infarction (principal)
CPT/HCPCS: 93010

== ENCOUNTER → 2024-08-16 13:50 | Outpatient (BNVA) | payer MEDICARE, SELFPAY | PROVIDERS: PCP Family Medicine; Referring Provider Family Medicine; Visit Provider Internal Medicine Cardiovascular Disease | DX: I25.10 Atherosclerotic heart disease of native coronary artery without angina pectoris (principal); I35.0 Nonrheumatic aortic (valve) stenosis; I73.9 Peripheral vascular disease, unspecified; I25.2 Old myocardial infarction | CPT/HCPCS: 93005; 99214 ==

== ENCOUNTER 2024-08-23 13:20 | Outpatient (RCR) | payer MEDICARE, SELFPAY | END 2024-08-23 23:59 | disposition home or self-care (01) | LOC: CR 13:20 | PROVIDERS: PCP Family Medicine; Visit Provider Internal Medicine Cardiovascular Disease | DX: I21.4 Non-ST elevation (NSTEMI) myocardial infarction (principal); Z51.89 Encounter for other specified aftercare | CPT/HCPCS: S9472 ==

== ENCOUNTER 2024-09-23 13:14 | Outpatient (RCR) | payer MEDICARE, SELFPAY | END 2024-09-23 23:59 | disposition home or self-care (01) | LOC: CR 13:14 | PROVIDERS: PCP Family Medicine; Visit Provider Internal Medicine Cardiovascular Disease | DX: I21.4 Non-ST elevation (NSTEMI) myocardial infarction (principal); Z95.5 Presence of coronary angioplasty implant and graft; Z51.89 Encounter for other specified aftercare | CPT/HCPCS: S9472 ==

== ENCOUNTER 2024-10-23 13:24 | Outpatient (RCR) | payer MEDICARE, SELFPAY | END 2024-10-23 23:59 | disposition home or self-care (01) | LOC: CR 13:24 | PROVIDERS: PCP Family Medicine; Visit Provider Internal Medicine Cardiovascular Disease | DX: I21.4 Non-ST elevation (NSTEMI) myocardial infarction (principal); Z95.5 Presence of coronary angioplasty implant and graft; Z51.89 Encounter for other specified aftercare | CPT/HCPCS: S9472 ==

== ENCOUNTER 2024-11-01 13:14 | Outpatient (RCR) | payer MEDICARE, SELFPAY | END 2024-11-23 23:59 | disposition home or self-care (01) | LOC: CR 13:14 | PROVIDERS: PCP Family Medicine; Visit Provider Internal Medicine Cardiovascular Disease | DX: I21.4 Non-ST elevation (NSTEMI) myocardial infarction (principal); Z95.5 Presence of coronary angioplasty implant and graft; Z51.89 Encounter for other specified aftercare | CPT/HCPCS: S9472 ==

== ENCOUNTER → 2025-02-13 13:08 | Outpatient (BNVA) | payer MEDICARE, SELFPAY | PROVIDERS: PCP Family Medicine; Referring Provider Family Medicine; Visit Provider Internal Medicine Cardiovascular Disease | DX: I35.0 Nonrheumatic aortic (valve) stenosis (principal); I25.10 Atherosclerotic heart disease of native coronary artery without angina pectoris; I73.89 Other specified peripheral vascular diseases | CPT/HCPCS: 99213 ==